=== PATIENT | male | born 1945 | race Caucasian/White ===

== ENCOUNTER 2021-04-09 05:52 | Inpatient (IN) ==
[2021-04-09] MEDS ORDERED: Lactated Ringers 1000 ml BAG 1,000 ML IV SCH (07:00)
[2021-04-09] MEDS ORDERED: Heparin 1,000 UNIT/ML 10 ml (10,000 UNITS) CATHLAB/DIALYSIS ONE (08:55)
[2021-04-09] MEDS ORDERED: fentaNYL 100 mcg/2 ml 50 MCG/ML VIAL ONE (08:55)
[2021-04-09] MEDS ORDERED: Heparin 2 UNITS/ML 1000 mls 2,000 ML IV ONE (08:55)
[2021-04-09] MEDS ORDERED: Midazolam 5 mg/5 ml VIAL 1 mg/ml 5 ml VIAL (5 mg) ONE (08:55)
[2021-04-09] MEDS ORDERED: Iohexol 350 (CONTRAST) 200 ML MDV IV ONE (08:56)
[2021-04-09] MEDS ORDERED: Lidocaine 1% VIAL 10 MG/ML VIAL ONE (08:56)
[2021-04-09] MEDS ORDERED: nitroGLYCERIN DRIP 25,000 MCG/250 ML BTL ONE (08:56)
[2021-04-09] MEDS ORDERED: niCARdipine 0.1MG/ML IVPREMIX 20 MG/200 ML BAG IV ONE (08:56)
[2021-04-09 09:14] LABS: ALT 13 U/L (7-52); AST 18 U/L (13-39); Albumin 3.8 g/dL (3.2-5.2); Albumin/Globulin Ratio 1.4 (1-3); Alkaline Phosphatase 54 U/L (35-149); Anion Gap 4 mmol/L (2-11); Blood Urea Nitrogen 23 mg/dL (6-24); CO2 Carbon Dioxide 32 mmol/L (22-32); Calcium 9.1 mg/dL (8.6-10.3); Chloride 104 mmol/L (101-111); Globulin 2.7 g/dL (2-4); Glucose 137 mg/dL (70-100); Magnesium 1.6 mg/dL (1.9-2.7); Potassium 4.4 mmol/L (3.5-5.0); Sodium 140 mmol/L (135-145); Total Protein 6.5 g/dL (6.4-8.9)
[2021-04-09 09:25] LABS: Troponin I 0.35 ng/mL (<0.03)
[2021-04-09] MEDS ORDERED: Dextrose 50% Syringe 50 ml 25 GM/50 ML SYRINGE IV PUSH PRN (10:44)
[2021-04-09] MEDS ORDERED: Albuterol HFA INHALER 8 gm MDI INH PRN (10:59)
[2021-04-09] MEDS ORDERED: FLUTICAS/UMECLI/VILANT 100-62.5-25 MDI (NF) INH SCH (11:00)
[2021-04-09] MEDS ORDERED: Magnesium Sulfate 2 gm BAG 2 GM/50 ML BAG IVPB ONE (11:14)
[2021-04-09] MEDS ORDERED: Magnesium Sulfate 2 gm BAG 2 GM/50 ML BAG ONE (12:13)
[2021-04-09] MEDS ORDERED: Enoxaparin 80 MG/0.8 ML SYR ONE (13:02)
[2021-04-09] MEDS: Aspirin EC 81 mg TAB.EC (enteric coated) PO SCH (13:12)
[2021-04-09] MEDS: Cholecalciferol (VIT D3) 1,000 unit TAB PO SCH (13:12)
[2021-04-09] MEDS: Enoxaparin 80 MG/0.8 ML SYR SUBCUT SCH ×2 (13:17→21:48)
[2021-04-09] MEDS: Vitamin THERAPEUTIC TAB PO SCH (13:17)
[2021-04-09] MEDS ORDERED: Perflutren Lipid Microsphere 3 ML VIAL ONE (15:03)
[2021-04-10 05:52] LABS: ABS Eosinophils 0.4 10^3/ul (0-0.6); ABS Lymphocytes 1.4 10^3/ul (1.0-4.8); ABS Monocytes 0.4 10^3/ul (0-0.8); ABS Neutrophils 5.1 10^3/ul (1.5-7.7); Eosinophil % 5.8 %; Hematocrit 45 % (42-52); Hemoglobin 15.3 g/dL (14.0-18.0); Mean Corpuscular HGB Conc 34 g/dL (31-36); Mean Corpuscular Hemoglobin 30 pg (27-31); Mean Corpuscular Volume 89 fL (80-94); Mean Platelet Volume 8.1 fL (7.4-10.4); Nucleated Red Blood Cells % 0.1; Platelet Count 227 10^3/uL (150-450); Red Blood Count 5.06 10^6 /uL (4.18-5.48); Red Cell Distribution Width 14 % (10-15); White Blood Count 7.3 10^3/uL (3.5-10.8)
[2021-04-10 06:08] LABS: Calcium 9.4 mg/dL (8.6-10.3); HDL Cholesterol 25.1 mg/dL; Potassium 4.3 mmol/L (3.5-5.0)
[2021-04-10] MEDS ORDERED: Pneumococcal Vac 23-Polyvalent IM ONE (09:00)
[2021-04-10] MEDS ORDERED: CMC:FLUTICAS/UMECLI/VILANT 100-62.5-25 MDI (NF) INH SCH (09:00)
[2021-04-10] MEDS ORDERED: Flu vaccine *QUAD* 2021-22* 0.5 ML SYRINGE IM ONE (09:00)
[2021-04-10] MEDS: Aspirin EC 81 mg TAB.EC (enteric coated) PO SCH (09:09)
[2021-04-10] MEDS: Cholecalciferol (VIT D3) 1,000 unit TAB PO SCH (09:09)
[2021-04-10] MEDS: Vitamin THERAPEUTIC TAB PO SCH (09:10)
[2021-04-10 09:25] VITALS: BP 106/58
== END 2021-04-10 09:25 | disposition short-term general hospital (02) | DRG 282 ==
LOC: ED 05:52 → CHICATH 08:33 → MEDTELE 14:19 → SUATTDRO 14:19
PROVIDERS: ADMIT Internal Medicine; ATTEND Hospitalist

== ENCOUNTER 2021-06-08 06:45 | Inpatient (IN) ==
[2021-06-08] MEDS ORDERED: Al Hydrox/Mg Hydrox/Simet LIQ 30 ML UDC PO PRN (07:39)
[2021-06-08] MEDS ORDERED: Albuterol HFA INHALER 8 gm MDI INH PRN (07:43)
[2021-06-08] MEDS ORDERED: NS 0.9% 1000 ml BAG 1,000 ML IV SCH ×2 (07:45→09:30)
[2021-06-08 08:02] LABS: ABS Eosinophils 0.4 10^3/ul (0-0.6); ABS Lymphocytes 1.6 10^3/ul (1.0-4.8); ABS Monocytes 0.4 10^3/ul (0-0.8); ABS Neutrophils 3.7 10^3/ul (1.5-7.7); Eosinophil % 6.5 %; Hematocrit 41 % (42-52); Hemoglobin 13.9 g/dL (14.0-18.0); Lymphocyte % 26.2 %; Mean Corpuscular HGB Conc 34 g/dL (31-36); Mean Corpuscular Hemoglobin 30 pg (27-31); Mean Corpuscular Volume 88 fL (80-94); Mean Platelet Volume 7.6 fL (7.4-10.4); Platelet Count 199 10^3/uL (150-450); Red Blood Count 4.68 10^6 /uL (4.18-5.48); Red Cell Distribution Width 14 % (10-15); White Blood Count 6.2 10^3/uL (3.5-10.8)
[2021-06-08] MEDS: Aspirin EC 81 mg TAB.EC (enteric coated) PO SCH (08:19)
[2021-06-08 08:29] LABS: Anion Gap 5 mmol/L (2-11); Blood Urea Nitrogen 30 mg/dL (6-24); CO2 Carbon Dioxide 30 mmol/L (22-32); Calcium 8.7 mg/dL (8.6-10.3); Chloride 106 mmol/L (101-111); Glucose 138 mg/dL (70-100); Potassium 4.1 mmol/L (3.5-5.0); Sodium 141 mmol/L (135-145); Troponin I 1.03 ng/mL (<0.03); eGFR CKD-EPI 54.6 (>60)
[2021-06-08] MEDS: CMCS: FLUTICAS/UMECLI/VILANT 100-62.5-25 MDI (NF) INH SCH (08:43)
[2021-06-08] MEDS ORDERED: fentaNYL 100 mcg/2 ml 50 MCG/ML VIAL ONE (10:18)
[2021-06-08] MEDS ORDERED: Midazolam 5 mg/5 ml VIAL 1 mg/ml 5 ml VIAL (5 mg) ONE (10:18)
[2021-06-08] MEDS ORDERED: VERAPAMIL 2.5 MG/ML 2 ML VIAL ** 5 mg/2 ml ONE (10:18)
[2021-06-08] MEDS ORDERED: Heparin 2 UNITS/ML 1000 mls 2,000 ML IV ONE (10:18)
[2021-06-08] MEDS ORDERED: Heparin 1,000 UNIT/ML 10 ml (10,000 UNITS) CATHLAB/DIALYSIS ONE (10:18)
[2021-06-08] MEDS ORDERED: Lidocaine 1% VIAL 10 MG/ML VIAL ONE (10:19)
[2021-06-08] MEDS ORDERED: nitroGLYCERIN DRIP 25,000 MCG/250 ML BTL ONE (10:19)
[2021-06-08] MEDS ORDERED: Iohexol 350 (CONTRAST) 200 ML MDV IV ONE (10:19)
[2021-06-08] MEDS ORDERED: Iodixanol 320 (CONTRAST) 100 ML SDV ONE (10:34)
[2021-06-08] MEDS: Heparin 5000 UNITS/ML 1 mL VIAL SUBCUT SCH ×2 (13:41→20:31)
[2021-06-08 15:15] LABS: Troponin I 0.78 ng/mL (<0.03)
[2021-06-08] MEDS: Nitroglycerin 0.2 mg/hr PATCH (5 mg) TRANSDERM SCH (16:30)
[2021-06-08] MEDS: Nitro Patch Removal Reminder PATCH OFF SCH (20:36)
[2021-06-09] MEDS: Heparin 5000 UNITS/ML 1 mL VIAL SUBCUT SCH ×3 (05:07→21:04)
[2021-06-09 06:06] LABS: HDL Cholesterol 26.6 mg/dL; Potassium 4.1 mmol/L (3.5-5.0); eGFR CKD-EPI 59.9 (>60)
[2021-06-09] MEDS: CMCS: FLUTICAS/UMECLI/VILANT 100-62.5-25 MDI (NF) INH SCH (07:14)
[2021-06-09] MEDS: Aspirin EC 81 mg TAB.EC (enteric coated) PO SCH (09:19)
[2021-06-09] MEDS: Nitroglycerin 0.2 mg/hr PATCH (5 mg) TRANSDERM SCH (09:20)
[2021-06-09] MEDS: Nitro Patch Removal Reminder PATCH OFF SCH (21:05)
[2021-06-10] MEDS: Heparin 5000 UNITS/ML 1 mL VIAL SUBCUT SCH ×3 (06:07→21:38)
[2021-06-10] MEDS: CMCS: FLUTICAS/UMECLI/VILANT 100-62.5-25 MDI (NF) INH SCH (07:39)
[2021-06-10 09:52] LABS: ABS Eosinophils 0.4 10^3/ul (0-0.6); ABS Lymphocytes 1.3 10^3/ul (1.0-4.8); ABS Monocytes 0.4 10^3/ul (0-0.8); ABS Neutrophils 4.4 10^3/ul (1.5-7.7); Eosinophil % 6.2 %; Hematocrit 47 % (42-52); Hemoglobin 15.7 g/dL (14.0-18.0); Lymphocyte % 19.9 %; Mean Corpuscular HGB Conc 34 g/dL (31-36); Mean Corpuscular Hemoglobin 29 pg (27-31); Mean Corpuscular Volume 88 fL (80-94); Mean Platelet Volume 7.9 fL (7.4-10.4); Nucleated Red Blood Cells % 0.1; Platelet Count 219 10^3/uL (150-450); Red Blood Count 5.35 10^6 /uL (4.18-5.48); Red Cell Distribution Width 14 % (10-15); White Blood Count 6.6 10^3/uL (3.5-10.8)
[2021-06-10 10:03] LABS: Calcium 9.7 mg/dL (8.6-10.3); Potassium 4.1 mmol/L (3.5-5.0); eGFR CKD-EPI 62.9 (>60)
[2021-06-10] MEDS ORDERED: Regadenoson 0.4 MG/5 ML SYRINGE ONE (13:00)
[2021-06-10] MEDS ORDERED: Aminophylline 25 MG/ML VIAL ONE (13:00)
[2021-06-10] MEDS: Nitroglycerin 0.2 mg/hr PATCH (5 mg) TRANSDERM SCH (15:33)
[2021-06-10] MEDS: Aspirin EC 81 mg TAB.EC (enteric coated) PO SCH (15:34)
[2021-06-10] MEDS: Nitro Patch Removal Reminder PATCH OFF SCH (21:42)
[2021-06-11] MEDS: Heparin 5000 UNITS/ML 1 mL VIAL SUBCUT SCH ×3 (05:43→21:03)
[2021-06-11] MEDS: CMCS: FLUTICAS/UMECLI/VILANT 100-62.5-25 MDI (NF) INH SCH (07:43)
[2021-06-11] MEDS: Aspirin EC 81 mg TAB.EC (enteric coated) PO SCH (08:26)
[2021-06-11] MEDS: Nitroglycerin 0.2 mg/hr PATCH (5 mg) TRANSDERM SCH (08:26)
[2021-06-11] MEDS ORDERED: Magnesium Hydroxide LIQ 30 ML UDC PO PRN (18:11)
[2021-06-12] MEDS: Heparin 5000 UNITS/ML 1 mL VIAL SUBCUT SCH ×3 (05:00→19:59)
[2021-06-12] MEDS: CMCS: FLUTICAS/UMECLI/VILANT 100-62.5-25 MDI (NF) INH SCH (08:03)
[2021-06-12] MEDS: Aspirin EC 81 mg TAB.EC (enteric coated) PO SCH (08:24)
[2021-06-12] MEDS: Isosorbide Mononit ER 30mg TAB PO SCH (08:24)
[2021-06-12] MEDS ORDERED: Furosemide 20 mg/2 ml IV VIAL IV SLOW PU ONE (20:26)
[2021-06-13] MEDS: Heparin 5000 UNITS/ML 1 mL VIAL SUBCUT SCH (05:15)
[2021-06-13 07:47] LABS: ABS Eosinophils 0.4 10^3/ul (0-0.6); ABS Lymphocytes 1.2 10^3/ul (1.0-4.8); ABS Monocytes 0.5 10^3/ul (0-0.8); ABS Neutrophils 5.1 10^3/ul (1.5-7.7); Eosinophil % 6.1 %; Hematocrit 45 % (42-52); Hemoglobin 15.3 g/dL (14.0-18.0); Lymphocyte % 16.1 %; Mean Corpuscular HGB Conc 34 g/dL (31-36); Mean Corpuscular Hemoglobin 30 pg (27-31); Mean Corpuscular Volume 88 fL (80-94); Mean Platelet Volume 8.1 fL (7.4-10.4); Platelet Count 245 10^3/uL (150-450); Red Blood Count 5.15 10^6 /uL (4.18-5.48); Red Cell Distribution Width 14 % (10-15); White Blood Count 7.3 10^3/uL (3.5-10.8)
[2021-06-13 08:02] VITALS: BP 134/70
[2021-06-13 08:03] LABS: Calcium 9.8 mg/dL (8.6-10.3); Potassium 4.2 mmol/L (3.5-5.0); eGFR CKD-EPI 48.8 (>60)
[2021-06-13] MEDS: Isosorbide Mononit ER 30mg TAB PO SCH (08:08)
[2021-06-13] MEDS: Aspirin EC 81 mg TAB.EC (enteric coated) PO SCH (08:08)
[2021-06-13] MEDS: CMCS: FLUTICAS/UMECLI/VILANT 100-62.5-25 MDI (NF) INH SCH (08:08)
== END 2021-06-13 11:30 | disposition home or self-care (01) | DRG 281 ==
LOC: MEDTELE 06:47 → INTOOBSV 06:47 → SUATTDRO 06-10 16:00
PROVIDERS: ADMIT Internal Medicine; ATTEND Hospitalist